=== PATIENT | male | born 1950 | race Caucasian/White ===

== ENCOUNTER → 2022-01-04 10:11 | Outpatient (CLI) | payer OTHER, SELFPAY ==
--- NOTE | 2022-01-04 | DI.CT.S_ITS ---
PROCEDURE: CT SINUS SCREEN WO CON INDICATIONS: Chronic pansinusitis TECHNIQUE: Noncontrast 3.0 mm axial images acquired from the frontal sinuses to the mid-sella, with coronal and sagittal reformats. For radiation dose reduction, the following was used: automated exposure control, adjustment of mA and/or kV according to patient size. COMPARISON: Outside Film, CT, CT SINUS WITHOUT CONTRAST, 03/08/2018, 10:23 (images only, no aside report). FINDINGS: Image quality: Excellent. Maxillary Sinuses: There is near complete opacification seen of the maxillary sinuses. The medial yeung maxillary sinuses are not seen. Ethmoid Air Cells: Moderate mucosal thickening is seen within the ethmoid air cells. Portions of the ethmoid air cell septations have been. Sphenoid Sinuses: No bony remodeling or destruction. Sinuses are clear. Frontal Sinuses: No bony remodeling or destruction. There is mild mucosal thickening seen involving inferior medial right frontal sinus. No significant is seen within left inferomedial frontal sinus. Ostiomeatal Complexes: Not seen, presumed to have been removed. Miscellaneous: Visualized intra-orbital contents are normal. Abnormal soft tissue can be seen within the right nasal cavity, particularly inferiorly and posteriorly, with extension into the nasopharynx. There is prominent demineralization of the right inferior turbinate and a portion of left middle nasal turbinates. IMPRESSION: Abnormal soft tissue seen within the right nasal cavity, with protrusion into the nasopharynx. 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 Paranasal sinus disease is seen, with near complete opacification maxillary sinuses. Prior postoperative change, with bilateral antrectomy and of portions ethmoid air cell septations. Dictated by: Anup Lindsey M.D. on 01/04/2022 at 13:40 Approved by: Anup Lindsey M.D. on 01/04/2022 at 13:44
== END ==
PROVIDERS: PCP Family Medicine; Referring Provider Otolaryngology; Visit Provider Otolaryngology
DX: J32.4 Chronic pansinusitis (principal); J33.9 Nasal polyp, unspecified; J34.89 Other specified disorders of nose and nasal sinuses
CPT/HCPCS: 70486

== ENCOUNTER 2022-06-22 10:29 | Day surgery (SDC) | payer OTHER, SELFPAY ==
--- NOTE | 2022-06-22 | PATH_ITS ---
[facility] Accession Number: [id number] No. of containers..01 Tissue . 01 Material submitted: . nasal cavity - RIGHT NASAL CAVITY . 01 Diagnosis: Right Nasal Cavity: Sinonasal inflammatory polyp. Negative for dysplasia and neoplasia. MRV 06/28/2022 1637 Local . 01 Electronically signed: . Hannah Morocho MD, Pathologist NPI- [id number] . 01 Gross description: . The specimen is received in formalin labeled with the patient's name, , and right nasal cavity, and consists of multiple montoya soft tissue fragments with no identifiable osseous tissue aggregating to 3.5 x 2.7 x 0.5 cm. The specimen is filtered into biopsy bags and submitted entirely in cassettes A1-A2. ([id number]) /MRV 06/27/2022 1506 Local . 01 Pathologist provided ICD-10: J33.9 . 01 CPT . 127599 Specimen Comment: A courtesy copy of this report has been sent to [phone] Performed at: 01 [facility] [address] [place] [address], [place], [place] [id number] MD Michael Lopez MD Phone: [phone]
[2022-06-22] MEDS: LACTATED RINGERS 1,000 ML 42 ML IV ×3 (10:47→12:48)
[2022-06-22] MEDS: OXYMETAZOLINE NASAL SPRAY 15 ML 2 SPRAYS NASAL (10:47)
[2022-06-22 11:00] VITALS: BP 144/82; PULSE 54; RESP 20; TEMP 36.1; O2SAT 98; BMI 31.5
--- NOTE | 2022-06-22 11:07 | PM.PREOP ---
Pre-operative Note Interval Note History & Physical reviewed/Exam performed by Physician: Yes Changes to H&P: No
--- NOTE | 2022-06-22 11:07 | PM.HP.1 ---
History of Present Illness History of Present Illness Date Patient Seen: 06/22/22 Time Patient Seen: 11:07 Chief complaint: ENT Narrative: 71-year-old male last seen in clinic 04/12/2022 presents for right endoscopic sinus surgery and turbinate reduction, persistent right nasal obstruction with obvious polypoid tissue on last exam. Last sinus CT 01/04 reviewed. No interval health changes, wishes to proceed with surgery today. [facility] Medical History Asymptomatic gallstones BPH (benign prostatic hyperplasia) Chronic back pain Chronic kidney disease Chronic pansinusitis GERD (gastroesophageal reflux disease) Hearing loss History of hepatitis C History of renal insufficiency HLD (hyperlipidemia) HTN (hypertension) Hypothyroid Nasal obstruction Nasal polyposis Nasal septal deviation Nasal turbinate hypertrophy Osteoarthritis Pneumonia Prostate cancer Sleep apnea Surgical History H/O vasectomy History of urologic surgery (11/22/16) Hx of cystoscopy (10/11/17) Hx of hand surgery Hx of hernia repair Hx of nasal septoplasty (07/01/18) Hx of tonsillectomy Social History Smoking Status: Former smoker Meds Home Medications and Allergies Home Medications Medication Instructions Recorded Confirmed Type atorvastatin 10 mg tablet (Lipitor) 10 mg PO QDAY ##0 11/21/16 06/22/22 History calcium carbonate 300 mg (750 mg) 750 mg PO PRN PRN Indigestion ##0 11/21/16 06/22/22 History chewable tablet (Tums E-X) eplerenone 25 mg tablet (Inspra) 25 mg PO DAILY ##0 11/21/16 06/22/22 History labetalol 200 mg tablet 200 mg PO BID ##0 11/21/16 06/22/22 History levothyroxine 88 mcg tablet 88 mcg PO QAM ##0 11/21/16 06/22/22 History (Synthroid) tadalafil 20 mg tablet (Cialis) 20 mg PO PRN PRN Erectile 11/21/16 06/22/22 History Dysfunction ##0 losartan 25 mg tablet 25 mg PO DAILY 06/22/22 06/22/22 History Allergies Allergy/AdvReac Type Severity Reaction Status Date / Time prednisone AdvReac Does not Verified 06/21/22 08:06 tolerate side effects Review of Systems Review of Systems Narrative: Negative except as listed in the HPI Exam Narrative Exam Narrative: Well-developed well-nourished, heart regular rate and rhythm without murmur, lungs clear to auscultation bilaterally Assessment & Plan Assessment & Plan narrative: Assessment: Chronic pansinusitis, nasal polyposis, nasal airway obstruction, inferior turbinate hypertrophy, SHERRY Plan: Following discussion of the material risks benefits complications and alternatives, the patient elected to proceed with right maxillary antrostomy with tissue removal, right anterior ethmoidectomy, and right inferior turbinate reduction via intramural cautery as outpatient.
--- NOTE | 2022-06-22 11:14 | P.OP_ITS ---
Operative Date/Time/Diagnoses Date of procedure: 06/22/22 Time of procedure: 13:09 Pre-op diagnosis: Chronic rhinosinusitis with nasal polyposis, nasal airway obstruction, inferior turbinate hypertrophy, SHERRY Post-op diagnosis: same Procedure & Clinicians Procedure: 1. Right endoscopic maxillary antrostomy with tissue removal 2. Right inferior turbinate reduction via intramural cautery Same procedure as scheduled: Yes Indications: 71 Year old with the above diagnoses incompletely managed with medical therapy presents for the above procedure. Following discussion of the material risks benefits complications and alternatives, the parents elected to proceed. Surgeon: Juanjose Kennedy Click Yes if Unassisted: Yes Anesthesia Type: General and Local Operative Notes Findings: Pale multilobulated polypoid mass extending from within the maxillary sinus posteriorly and inferiorly into the nasopharynx, tissue sent to pathology. Possible origination inferior maxillary sinus, difficult exposure, markedly inflamed and hypertrophic/polypoid mucosa within maxillary sinus, including remnant uncinate. Scant purulence anteriorly. No revision ethmoid work necessary. Polypoid mucosa LEFT inferior maxillary sinus, no purulence. Specimen(s): other (Right nasal cavity mass) Estimated Blood Loss (mL): 100 Procedure in detail: Following identification and confirmation of consent, the patient was brought to the operating room suite and placed in the supine position. General endotracheal anesthesia was administered. Pt had received pre-op Afrin. Following sterile prep and drape, under endoscopic guidance I infiltrated the visible polyp/mass and anterior superior insertion of the right middle turb inate. Cotton pledgets with 1 1000 epinephrine were placed in the middle meatus for several minutes and removed, intermittently used throughout the case in addition as needed for hemostasis. The middle turbinate was slightly medialized and the backbiting forceps performed revision uncinectomy along with the microdebrider. Polyps were resected and sent as a specimen. Maxillary antrostomy was enlarged circumferentially posteriorly and inferiorly and additional polyp was resected from within the maxillary sinus with curved forceps and the microdebrider. Hemostasis with epi on cotton was performed, eventually some suction electrocautery on a setting of 10. The right inferior turbinate had been previously infiltrated with additional local anesthetic and 23 gauge spinal needle was used to impale the length of the turbinate with suction electrocautery on a setting of 15 applied to the needle upon slow withdrawal over a single pass. The turbinate was then outfractured. Sponge counts were correct and he was extubated in the operating room and taken to recovery room in stable condition without complication. Complications: none Post-operative Condition: stable Disposition: same day surgery Plan for aftercare: Nasal saline every hour while awake, begin irrigations t.i.d. tomorrow. Polysporin to the nostrils at all times, Tylenol alternating with Advil for pain control, oxycodone for breakthrough pain. Elevate head of bed, no nose blowing, no straining for 2 weeks. Follow-up in 1 week, call sooner with concerns.
--- NOTE | 2022-06-22 12:07 | SUR.OPER ---
Supine on padded OR bed, head on pillow, arms padded and tucked at sides, legs uncrossed, safety belt at thigh, tape over blanket over lower legs .
[2022-06-22] MEDS: LIDOCAINE 1% W/EPI 20 ML INJ (12:35)
[2022-06-22] MEDS: EPINEPHrine 1 MG/ML 4 MG IRR (12:36)
[2022-06-22 13:23] VITALS: BP 144/78; PULSE 71; RESP 14; TEMP 36.1; O2SAT 95
[2022-06-22 13:26] VITALS: BP 129/74; PULSE 69; RESP 12; O2SAT 94
[2022-06-22 13:31] VITALS: BP 125/76; PULSE 68; RESP 12; O2SAT 94
[2022-06-22 13:41] VITALS: BP 122/75; PULSE 70; RESP 14; TEMP 36.3; O2SAT 96
[2022-06-22 13:48] VITALS: BP 133/85; PULSE 67; RESP 12; TEMP 36.3; O2SAT 97
== END 2022-06-22 14:23 | disposition home or self-care (01) ==
PROVIDERS: PCP Family Medicine; Referring Provider Otolaryngology; Visit Provider Otolaryngology
PROC: (CPT 31267; principal; 2022-06-22 11:30)
PROC: (CPT 31231; 2022-06-22 11:30)
DX: J34.89 Other specified disorders of nose and nasal sinuses (principal); J33.9 Nasal polyp, unspecified; J34.3 Hypertrophy of nasal turbinates; J32.4 Chronic pansinusitis; J34.2 Deviated nasal septum; G47.33 Obstructive sleep apnea (adult) (pediatric)
CPT/HCPCS: 31267; 30802; A9270; J0171; J0330; J1100; J2405; J2704; J3010